=== PATIENT | female | born 1990 | race Caucasian/White ===

== ENCOUNTER 2024-08-13 23:57 | Emergency (ER) | payer SELFPAY ==
[~2024-08-13] VITALS: Ht 162.6 cm; Wt 50.0 kg
[2024-08-14] MEDS ORDERED: KETOROLAC TROMETHAMINE 30 MG/ML SDV IV ONE (00:25)
[2024-08-14] MEDS ORDERED: PROMETHAZINE HCL 25 MG/ML AMP IV ONE (00:25)
[2024-08-14] MEDS ORDERED: ACETAMINOPHEN 500 MG TAB PO ONE (00:25)
[2024-08-14] MEDS ORDERED: SODIUM CHLORIDE 0.9% 1,000 ML IV ONE (00:25)
[2024-08-14] MEDS ORDERED: DiphenhydrAMINE HCL 50 MG/ML SDV IV ONE (00:25)
[2024-08-14 00:37] LABS: BASO% 0.5 % (0-3); EOS% 1.1 % (0-8); HEMATOCRIT 39.4 % (37.0-47.0); HEMOGLOBIN 13.3 g/dl (12.0-16.0); IMMATURE GRANULOCYTES 0.7 % (0.0-5.0); LYMPH% 34.3 % (15-41); MEAN CELL VOLUME 94.7 fL CALC (80.0-100.0); MEAN CORPUSCULAR HGB CONC 33.8 g/dL CAL (32.0-36.0); MONO% 6.6 % (2-13); NEUT# 2.5 thou/uL (2.00-7.15); NEUT% 56.8 % (42-76); RED BLOOD COUNT 4.16 mill/uL (4.20-5.60); RED CELL DISTRI WIDTH 11.3 % (11.5-15.5)
[2024-08-14 01:03] LABS: ALBUMIN 4.2 g/dL (3.2-5.0); BILIRUBIN, TOTAL 0.4 mg/dL (0.02-1.3); CREATININE 0.8 mg/dL (0.5-1.0); POTASSIUM 3.8 mmol/l (3.5-5.1)
[2024-08-14] MEDS ORDERED: PHENERGAN25 MG RE (02:13)
[2024-08-14 02:20] VITALS: BP 120/80
== END 2024-08-14 02:29 | disposition home or self-care (01) | DRG 103 ==
LOC: ED 23:57
PROVIDERS: Family Medicine
DX: G43.909 Migraine, unspecified, not intractable, without status migrainosus (principal)
CPT/HCPCS: J1100; J1200; J2550